=== PATIENT | female | born 1940 | race Caucasian/White ===

== ENCOUNTER 2017-02-27 05:05 | Emergency (ER) | payer OTHER, BC ==
[2017-02-27 05:52] LABS: BASOPHIL % 0.4 % (0-2); PLATELET COUNT 368 x10^3mcL (130-400)
[2017-02-27 05:57] LABS: RED CELL DISTRIBUTION WIDTH 18.4 % (11.5-14.5)
[2017-02-27 06:08] LABS: ALBUMIN 3.7 g/dL (3.4-5.0); ALKALINE PHOSPHATASE 42 U/L (46-116); ALT/SGPT 37 U/L (14-59); AST/SGOT 40 U/L (15-37); BILIRUBIN TOTAL 0.9 mg/dL (0.20-1.00); CALCIUM 10.5 mg/dL (8.5-10.1); CARBON DIOXIDE 22.8 mmol/L (21-32); CHLORIDE SERUM 102 mmol/L (98-107); CREATININE SERUM 0.9 mg/dL (0.6-1.0); GLUCOSE SERUM 200 mg/dL (74-106); LIPASE 291 IU/L (73-393); POTASSIUM SERUM 4.3 mmol/L (3.5-5.1); SODIUM SERUM 135 mmol/L (136-145); TOTAL PROTEIN, SERUM 7.8 g/dL (6.4-8.2)
[2017-02-27 06:34] VITALS: BP 147/108
== END 2017-02-27 06:32 | disposition short-term general hospital (02) ==
LOC: ED 05:05
PROVIDERS: Emergency Medicine
DX: I21.29 ST elevation (STEMI) myocardial infarction involving other sites (principal); I95.9 Hypotension, unspecified; I10 Essential (primary) hypertension; E11.9 Type 2 diabetes mellitus without complications; Z79.84 Long term (current) use of oral hypoglycemic drugs; Z88.5 Allergy status to narcotic agent; Z88.6 Allergy status to analgesic agent
CPT/HCPCS: 82962; J1644; J3010; J7030; Q0092

== ENCOUNTER 2017-03-20 10:41 | Inpatient (IN) | payer OTHER, BC ==
[~2017-03-20] VITALS: Ht 152.4 cm; Wt 80.8 kg
--- NOTE | 2017-03-20 12:03 | NUR ---
PT AMBULATORY TO BED 7 FROM ED LOBBY WITH STEADY GAIT C/O SOB X1 MONTH, WORSE SINCE LAST NIGHT. PER PT SHE WAS DISCHARGED FROM THE HOSPITAL APPROX 3 WEEKS AGO AND HAD BEEN USING HER NEBULIZER AT HOME 2X A DAY WITH MINIMAL RELIEF. PT ALSO REPORTS AWAITING SLEEP STUDY. PT AA/O X4, RESPS EVEN AND UNLABORED, LUNG SOUNDS CLEAR, SKIN INTACT, WARM/DRY TO TOUCH, ABDOMEN SOFT/ROUND, NON TENDER, NO S/S OF DISTRESS NOTED. PT GOWNED, PLACED ON [employer]PLEN[employer]MENT [employer]. AWAITING MSE.
[2017-03-20 12:55] LABS: BASOPHIL % 0.7 % (0-2); PLATELET COUNT 251 x10^3mcL (130-400)
[2017-03-20 12:56] LABS: RED CELL DISTRIBUTION WIDTH 18.7 % (11.5-14.5)
--- NOTE | 2017-03-20 13:03 | NUR ---
PT SITTING UP IN ED [place] AA/O X4, TALKING WITH VISITORS AT BEDSIDE, REPORTS FEELING BETTER POST BREATHING TX, RESPS EVEN AND UNLABORED, SKIN WARM/DRY TO TOUCH, NO S/S OF DISTRESS NOTED. COMFORT MEASURES IN PLACE, CALL LIGHT WITHIN REACH.
[2017-03-20 13:08] LABS: CALCIUM 8.8 mg/dL (8.5-10.1); CARBON DIOXIDE 27.1 mmol/L (21-32); CHLORIDE SERUM 104 mmol/L (98-107); CREATININE SERUM 0.9 mg/dL (0.6-1.0); GLUCOSE SERUM 168 mg/dL (74-106); POTASSIUM SERUM 3.8 mmol/L (3.5-5.1); SODIUM SERUM 140 mmol/L (136-145)
[2017-03-20 13:12] LABS: ALKALINE PHOSPHATASE 86 U/L (46-116); ALT/SGPT 47 U/L (14-59); AST/SGOT 33 U/L (15-37); BILIRUBIN TOTAL 0.7 mg/dL (0.20-1.00)
[2017-03-20 13:13] LABS: ALBUMIN 3.2 g/dL (3.4-5.0); CHOLESTEROL 119 mg/dL (<200); HDL CHOLESTEROL 23 mg/dL (40-60)
--- NOTE | 2017-03-20 13:40 | NUR ---
DR. SESAY AT BEDSIDE DISCUSSING PLAN OF CARE WITH PT AND FAMILY.
--- NOTE | 2017-03-20 14:16 | NUR ---
REPORT CALLED TO AGATA CASE, PT TO BE ADMITTED TO [facility]. PT IN NO DISTRESS.
[2017-03-20] MEDS ORDERED: CARVEDILOL3.125 M1 PO (14:17)
[2017-03-20] MEDS ORDERED: FUROSEMIDE20 MG PO (14:17)
[2017-03-20] MEDS ORDERED: ASPIR 8181 MG PO (14:17)
[2017-03-20] MEDS ORDERED: METFORMIN HCL850 MG PO (14:18)
[2017-03-20] MEDS ORDERED: GLIPIZIDE ER10 M1 PO (14:18)
[2017-03-20] MEDS ORDERED: LISINOPRIL2.5 MG PO (14:18)
[2017-03-20] MEDS ORDERED: PRAVACHOL20 MG PO (14:18)
[2017-03-20] MEDS ORDERED: PROTONIX20 MG PO (14:18)
[2017-03-20] MEDS ORDERED: IBUPROFEN400 MG PO (14:19)
--- NOTE | 2017-03-20 14:32 | NUR ---
PT PROVIDED WITH LUNCH TRAY, SITTING UP IN BED, AA/O X4, EATING WITH FAMILY BESIDE, RESPS EVEN AND UNLABORED, NO S/S OF DISTRESS NOTED.
[2017-03-20 14:47] VITALS: BP 106/68
--- NOTE | 2017-03-20 14:47 | NUR ---
REC'D PT FROM ER VIA [facility]. PT IS AAOX4. TELE #44 ST UZ=[id number]. C/O 5/10 HEADACHE. RESP EVEN AND UNLABORED. WHEEZING HEARD BILATERALLY. PT C/O MILD SOB O2 SAT = 95% ON RA. APPLIED 2L O2 VIA NC FOR COMFORT. IV NOTED TO RAC. INTACT AND PATENT. ORIENTED PT TO CALL LIGHT. BED IN LOWEST POSITION. WILL ENDORSE TO PRIMARY RN.
[2017-03-20 15:04] VITALS: BP 123/72
--- NOTE | 2017-03-20 15:30 | NUR ---
RECEIVED PT FR.ALBERT CASE.AAO X4.DENIES ANY PAIN/DISCOMFORT.IVF NS GOING AT 20 ML/HR INFUSING WELL.CALL LIGTH WITHIN REACH.INSTRUCTED TO CALL FOR ANY PAIN/DISCOMFORT.WILL CONTINUE TO MONITOR PT.
--- NOTE | 2017-03-20 16:10 | NUR ---
ECHO PENDING PT. HAD ECHO DONE AT [facility] LAST MONTH.
[2017-03-20 17:54] LABS: TOTAL IRON BINDING CAPACITY 417 ug/dL (250-450)
[2017-03-20 18:00] LABS: IRON 29 ug/dL (50-170)
[2017-03-20 18:10] LABS: MAGNESIUM 1.4 mg/dL (1.8-2.4); PHOSPHOROUS 3.9 mg/dL (2.5-4.9)
[2017-03-20 18:14] LABS: CHOLESTEROL/HDL RATIO 5.3
[2017-03-20 18:23] LABS: RED BLOOD CELLS 4.04 M/mm3 (4.10-5.10)
--- NOTE | 2017-03-20 18:30 | NUR ---
NO SIGNIFICANT CHANGE NOTED.WILL ENDORSE TO NEXT SHIFT.
--- NOTE | 2017-03-20 19:30 | NUR ---
PT IS RESTING WELL. CEE CHICAS DOING HER ASSESSMENTS. PLEASANT AND COOPERAITVE. LUNGS DIMINISHED ON AUSCULTATIONS BILATERALLY. WITH 02 AT 2 LITERS NASAL CANNULA. PT WILL HAVE BI-PAP AFTER PO MEDIATIONS. BOWEL SOUNDS ACTIVE AND PRESENT. WITH START ZOSYN IV. MADE COMFORTABLE IN BED. CALL LIGHT WITHIN EASY REACH.
--- NOTE | 2017-03-20 20:49 | NUR ---
OBTAINED LACTATE ACID 4.3. PAGED DR. MAGANA. PT IS ALSO ASKING FOR SLEEPING PILL.
[2017-03-20 21:31] VITALS: BP 112/48
--- NOTE | 2017-03-20 22:42 | NUR ---
DR. MAGANA ORDERED BOLUS NS FOR 2200 ML TOTAL FOR LACTATE 4.3. AFTER BEING STARTED FOR 30 MINUTES SHE C/O SOB. PLACED THE 02 AND LOWERED THE IV RATE TO 120 ML. NOW PT WAS TOLERATING IT, WAS INCREASED TO 220 ML PER HOUR. NOW SHE IS ON BI-PAP MACHINE. DR. MAGANA MADE AWARE.
[2017-03-21] VITALS (8 sets, daily range): BP systolic 97–131; BP diastolic 41–84
--- NOTE | 2017-03-21 00:16 | NUR ---
PT C/O BACK PAIN 09/15. MEDICATED WITH MOTRIN 600 MG PO AND CONCEPCIÓN CRACKERS. PT REFUSED BIPAP FOR NOW. JUST OBTAINED LACTIC ACID RESULT AND WAS 4.8.
--- NOTE | 2017-03-21 02:20 | NUR ---
PT IV IN THE RIGHT AC WAS INFILTRATED BUT WAS LEAKING. RESTARTED IV ANGIOCATH GAUGE 24. PT WANTED TO REFUSED INSERTION FOR ANOTHER IV LINE BUT WAS EXPLAINED THE IMPORTANCE OF IV. DR. MAGANA WAS NOTIFIED THAT PT WAS MILDLY SHORTNESS IF BREATH AND MILD WHEEZING NOTED ANGELINA BASES. HEAD OF BED ELEVATED. WILL MONITOR. MAG RIDER IV IS RESUMED. WILL MONITOR.
--- NOTE | 2017-03-21 03:19 | NUR ---
PT WAS GIVEN A DOSE OF AMBIEN 5 MG PO FOR SLEEP AND LASIX 40 MG IVPUSH BECAUSE OF WHEEZING. HEAD OF BED ELEVATED. WILL MONITOR.
--- NOTE | 2017-03-21 03:42 | NUR ---
PT IS UNABLE TO TOLERATE BIPAP SHE ASKED TO PUT ON 02. SHE IS 02 AT 2 LITERS NASAL CANNULA.
--- NOTE | 2017-03-21 05:18 | NUR ---
PT IS RESTING WELL AFTER DEMANDING THAT SHE HAS TO TAKE HER SLEEPING PILL AND LITTLE BIT LATE ABOUT 3 AM. IV NS AT 20 ML PER HOUR INFUSING WELL IN THE RIGHT WRIST. PATENT AND INTACT. VOIDED TWICE URINE AFTER 40 MG OF IV LASIX. WILL CONTINUE TO MONITOR.
[2017-03-21 06:12] LABS: BASOPHIL % 0.4 % (0-2); PLATELET COUNT 258 x10^3mcL (130-400)
[2017-03-21 06:21] LABS: CALCIUM 9.3 mg/dL (8.5-10.1); CARBON DIOXIDE 25.8 mmol/L (21-32); CHLORIDE SERUM 104 mmol/L (98-107); CREATININE SERUM 1.1 mg/dL (0.6-1.0); GLUCOSE SERUM 293 mg/dL (74-106); PHOSPHOROUS 3.3 mg/dL (2.5-4.9); POTASSIUM SERUM 4.2 mmol/L (3.5-5.1); SODIUM SERUM 142 mmol/L (136-145)
[2017-03-21 06:29] LABS: RED CELL DISTRIBUTION WIDTH 18.9 % (11.5-14.5)
--- NOTE | 2017-03-21 06:34 | NUR ---
PT NOTED SOB AND ESPECIALLY WHEN SHE GOES TO THE BATHROOM. WAS PRESENT AND NOTIFIED NIM OF THE PRESENT CONDITION AND THE SOB. PT HAS 02 AT 2 LITERS NASAL CANNULA. RT IS PRESENT AND GIVEN THE BREATHING TREATMENT. DR. BOONE WAS ALSO NOTIFIED THAT ABG NOT DONE ON DEBRA PT. ALSO NOTIFIED HIM THAT PT HAS BEEN REFUSING BIPAP. SHE ONLY WEAR LIKE TOTAL OF 1 HOUR THE WHOLE NIGHT. WILL MONITOR
[2017-03-21 06:55] LABS: microscopic required? NO
--- NOTE | 2017-03-21 07:04 | NUR ---
URINE SPECIMEN SENT TO LAB FOR URINALYSIS AND URC. PT ON BI-PAP AT THIS TIME. WITH SAME SETTING.
[2017-03-21 07:11] LABS: UA SPECIFIC GRAVITY 1.015 (1.005-1.035); urine erythrocyte NEGATIVE (NEGATIVE)
--- NOTE | 2017-03-21 07:20 | NUR ---
AAO X4.DENIES ANY PAIN AT THE MOMENT.RT AT BEDSIDE PUTTING THE PATIENT ON BIPAP.LUNG SOUND DIMINISHED ON THE BASES.ON ST ON THE MONITOR.IV SALINE LOCKED.CALL LIGTH WITHIN REACH.INSTRUCTED TO CALL FOR ANY PAIN/DISCOMFORT.WILL CONTINUE TO MONITOR PT.
--- NOTE | 2017-03-21 13:31 | NUR ---
ULTRASOUND GUIDED THORACENTESIS STARTING RIGHT NOW.
--- NOTE | 2017-03-21 13:57 | NUR ---
cancellation requested for echocardiogram
--- NOTE | 2017-03-21 14:04 | NUR ---
US GUIDED THORACENTESIS DONE WITH 1100 ML OUT.PT TOLERATED WELL.BAND AID ON R UPPER BACK CDI.PT TOLERATED WELL.
[2017-03-21 16:41] LABS: APPEARANCE FLUID HAZY; COLOR FLUID YELLOW; LYMPHOCYTE FLUID 70 %; RBC FLUID 1752 /cumm; SOURCE FLUID PLEURAL; WBC FLUID 242 /cumm
[2017-03-21 17:18] LABS: TOTAL PROTEIN, SERUM 7.3 g/dL (6.4-8.2)
--- NOTE | 2017-03-21 18:08 | NUR ---
NO SIGNIFICANT CHANGE NOTED.WILL ENDORSE TO NEXT SHIFT.
--- NOTE | 2017-03-21 20:00 | NUR ---
PT A/A/O X4, FAMILY AT BEDSIDE. PT DENIES DIZZINESS AND HEADACHE. WHEEZES NOTED ANGELINA LUNGS. BREATHING EVEN AND LABORED ON ROOM AIR, SPO2 97%. DENIES CHEST PAIN AND PRESSURE, HR 107. BOWEL SOUNDS ACTIVE. NO C/O N/V AND ABD PAIN. C/O PAIN ON THE PUNCTURE SITE ON THE RIGHT SIDE OF THE BACK. PT WAS GIVEN MOTRIN PO AT 1938. ENCOURAGED THE PT TO WAIT FOR THE EFFECT OF THE MEDICATION FOR THE PAIN. PT VERBALIZED UNDERSTADING. IV HEPLOCK INTACT ON THE RIGHT WRIST. MADE PT COMFORTABLE. PLACED CALL LIGHT WITH IN REACH. WILL CONTINUE TO MONITOR.
--- NOTE | 2017-03-21 23:53 | NUR ---
PT REMOVED BI PAP. PT STATED "I WANT IT OFF NOW.". CHELSEA RT AWARE. PT WITH NO RESPIRATORY DISTRESS NOTED. WILL CONTINUE TO MONITOR.
[2017-03-22 05:14] VITALS: BP 105/58
[2017-03-22 06:22] LABS: CARBON DIOXIDE 27.7 mmol/L (21-32); CHLORIDE SERUM 102 mmol/L (98-107); GLUCOSE SERUM 187 mg/dL (74-106); POTASSIUM SERUM 3.9 mmol/L (3.5-5.1); SODIUM SERUM 140 mmol/L (136-145)
--- NOTE | 2017-03-22 06:28 | NUR ---
PT QUIET AND RESTING. NO C/O SOB AND RESPIRATORY DISTRESS THUS FAR. IV HEPLOCK INTACT. MADE PT COMFORTABLE. WILL ENDORSE TO THE AM NURSE ACCORDINGLY.
--- NOTE | 2017-03-22 08:00 | NUR ---
AWAKE,ALERT AND ORIENTED. DENIES ANY PAIN AT THIS TIME.NO ACUTE RESP. DISTRESS NOTED. ON ROOM AIR,CONT. R.T PROTOCOL. REQUIRES MOD. ASSIST. W/ ADL NEEDS ,ABLE TO AMBULATE IN THE BATHROOM AND VOIDING WELL.W/ ASSIST.CONT. IV ANTIBIOTIC ORDERED.WILL CONT. PLAN OF CARE.
[2017-03-22 08:03] LABS: PLATELET COUNT 303 x10^3mcL (130-400)
[2017-03-22 08:11] LABS: BASOPHIL % 0 % (0-2); RED CELL DISTRIBUTION WIDTH 18.9 % (11.5-14.5)
--- NOTE | 2017-03-22 09:20 | NUR ---
DR. MONTELONGO HERE W/ OTHER MEDICAL STAFF MADE ROUNDS AND UPDATED PT. PLAN OF CARE.
[2017-03-22 09:45] VITALS: BP 102/57
[2017-03-22 13:58] VITALS: BP 97/47
--- NOTE | 2017-03-22 15:03 | NUR ---
ORDERED HOME O2 EVAL. SPO2 ON ROOM AIR AT REST IS 97% HR 115. SPO2 ON AMBULATION ON RA WAS 97%. PT DENIED SOB DURING AMBULATION ON RA. WILL CONT TO MONITOR
[2017-03-22 17:25] VITALS: BP 113/64
--- NOTE | 2017-03-22 18:59 | NUR ---
DENIES PAIN THE WHOLE DAY,COOPERATIVE AND QUITE,CALL LIGHT W/ IN REACH.NO ACUTE DISTRESS NOTED.
--- NOTE | 2017-03-22 19:33 | NUR ---
REC'D REPORT FROM DAY NURSE RN JADEN. PT IS AAOX4. ABLE TO MAKE NEEDS KNOWN. NO RESP DISTRESS NOTED. DENIES PAIN. TELE#44. LUNG SOUNDS ARE CTA. ON RA, NO SOB. BREATHING EVEN AND UNLABORED. ABD ROUND AND ACTIVE. NO EDEMA NOTED. IV ACCESS TO L WRIST HEPLOCK. BED IN LOWEST POSITION. CALL LIGHT WITHIN REACH. WILL PROCEED TO THE PLAN OF CARE.
[2017-03-22 20:38] VITALS: BP 113/55
[2017-03-22 20:57] VITALS: BP 99/62
--- NOTE | 2017-03-22 23:35 | NUR ---
ROUNDS MADE, PT IS SLEEPING WITH EYES CLOSED. NO DISTRESS NOTED. WILL CONT TO MONITOR.
--- NOTE | 2017-03-23 01:26 | NUR ---
ROUNDS MADE, PT IS SLEEPING AND RESTING WELL. NO DISTRESS NOTED. WILL CONT TO MONITOR.
[2017-03-23 05:02] VITALS: BP 107/58
[2017-03-23 06:16] LABS: CALCIUM 9.1 mg/dL (8.5-10.1); CARBON DIOXIDE 27.4 mmol/L (21-32); CHLORIDE SERUM 103 mmol/L (98-107); GLUCOSE SERUM 83 mg/dL (74-106); POTASSIUM SERUM 3.7 mmol/L (3.5-5.1); SODIUM SERUM 140 mmol/L (136-145)
--- NOTE | 2017-03-23 06:57 | NUR ---
PT SLEPT THROUGHOUT THE SHIFT. NO RESP DISTRESS NOTED. DENIES PAIN. ALL NEEDS MET AND ATTENDED TO. NO SIGNIFICANT CHANGES NOTED. IV ACCESS PATENT AND INTACT. WILL ENDORSE ALL CARE TO ONCOMING NURSE.
[2017-03-23 07:16] LABS: BASOPHIL % 0.1 % (0-2); PLATELET COUNT 324 x10^3mcL (130-400)
[2017-03-23 07:23] LABS: RED CELL DISTRIBUTION WIDTH 18.6 % (11.5-14.5)
--- NOTE | 2017-03-23 08:00 | NUR ---
AWAKE,ALERT AND ORIENTED DENIES ANY PAIN AT THIS TIME. SITTING UP IN CHAIR AT BEDSIDE EATING BREAKFAST. CALL LIGHT W/ IN REACH.CONT. IV ANTIBIOTIC ORDERED.ON RA NO ACUTE RESP. DISTRESS NOTED.WILL CONT. PLAN OF CARE.
[2017-03-23 08:52] VITALS: BP 105/58
--- NOTE | 2017-03-23 09:00 | NUR ---
DR. BEAULIEU HERE W/ OTHER MEDICAL STAFF MADE ROUNDS AND UPDATED PT. PLAN OF CARE.
[2017-03-23 13:19] VITALS: BP 110/57
--- NOTE | 2017-03-23 13:24 | NUR ---
PT NOTES CHART REVIEWED AND CLEARED FOR PT BY RN. PATIENT SITTING UP IN BEDSIDE CHAIR RESTING WITH VISITOR AT BEDSIDE. PATIENT ASKS IF POSSIBLE TO RETURN AFTER LUNCH, NO OTHER NEEDS AT THIS TIME. CALL LIGHT IN REACH. RETURNED POST LUNCH TO ATTEMPT THERAPY, BUT NOT IS IS SIDELINE SLEEPING AND EASILY AROUSED. PATIENT DENIES PAIN OR SOB AT THIS TIME, BUT EXPRESSING FATIGUE; "BEEN UP TO RESTROOM AND I DIDN'T SLEEP WELL LAST NIGHT" PER PATIENT. PATIENT DECLINED PARTICIPATION DESPITE PROVIDING ENCOURAGEMENT AND EDUCATION ON FURTHER BENEFITS OF THERAPY. PATIENT ENCOURAGED CONTINUED HEP PARTICIPATION AND TO USE CALL LIGHT WHEN NEEDING ASSISTANCE. TRAY AND CALL LIGHT IN REACH. RN MADE AWARE. WILL FOLLOW PATIENT NEXT SESSION IF POSSIBLE. RN MADE AWARE. PVEx2
--- NOTE | 2017-03-23 16:00 | NUR ---
[employer] WAS HERE AND CONNECTED PT. HOLTER MONITOR AND THEY. TEACH PT. AND INSTRUCTED WHAT THE PURPOSE AND HOW TO TAKE CARE OF THE HOLTER MONITOR . AND PT. VERBALIZED UNDERSTANDING OF INSTRUCTIONS GIVEN.PT. DENIES ANY PAIN AT THIS TIME. AMBULATED IN THE BATHROOM AND VOIDING WELL W/ 1 BM .
[2017-03-23 17:01] VITALS: BP 103/63
--- NOTE | 2017-03-23 17:22 | NUR ---
PT REFUSED HHN TX AT 1646. NO RESP DISTRESS OR SOB SEEN OR NOTED. SPO2 96 ON ROOM AIR. B/S: CLEAR
[2017-03-23 17:52] VITALS: BP 103/63
--- NOTE | 2017-03-23 18:00 | NUR ---
PT. EATING DINNER NO ACUTE DISTRESS NOTED. DENIES ANY PAIN THE WHOLE DAY.
--- NOTE | 2017-03-23 19:52 | NUR ---
REC'D PT FROM DAY NURSE. AAOX4. SITTING UP IN BED. ABLE TO MAKE NEEDS KNOWN. DENIES SOB. NO DISTRESS NOTED AT THIS TIME. TELE #44. LUNG SOUNDS CTA. ON RA, BREATHING EVEN AND UNLABORED. ABD IS ROUND AND ACTIVE. NO EDEMA NOTED. IV ACCESS TO THE LFA PATENT AND INTACT. BED IN LOWEST POSITION. CALL LIGHT WITHIN REACH. WILL PROCEED TO THE PLAN OF CARE.
[2017-03-23 21:01] VITALS: BP 119/98
--- NOTE | 2017-03-23 22:58 | NUR ---
ROUNDS MADE, PT IS ASLEEP AND RESTING IN BED. NO RESP DISTRESS NOTED. WILL CONT TO MONITOR.
[2017-03-24 05:18] VITALS: BP 107/54
--- NOTE | 2017-03-24 05:46 | NUR ---
ROUNDS MADE, PT IS SLEEPING BUT EASILY AROUSABLE. NO RESP DISTRESS NOTED. WILL CONT TO MONITOR.
[2017-03-24 06:22] LABS: CALCIUM 8.8 mg/dL (8.5-10.1); CARBON DIOXIDE 27.2 mmol/L (21-32); CHLORIDE SERUM 104 mmol/L (98-107); CREATININE SERUM 0.8 mg/dL (0.6-1.0); GLUCOSE SERUM 103 mg/dL (74-106); MAGNESIUM 1.7 mg/dL (1.8-2.4); PHOSPHOROUS 3.1 mg/dL (2.5-4.9); POTASSIUM SERUM 3.9 mmol/L (3.5-5.1); SODIUM SERUM 140 mmol/L (136-145)
--- NOTE | 2017-03-24 06:26 | NUR ---
PT SLEPT THROUGHOUT THE SHIFT. NO RESP DISTRESS NOTED. DENIES PAIN. NO SIGNIFICANT CHANGES. ALL NEEDS MET AND ATTENDED TO. IV ACCESS PATENT. WILL ENDORSE ALL CONTINUITY CARE TO ONCOMING NURSE.
[2017-03-24 06:31] LABS: BASOPHIL % 0.1 % (0-2); PLATELET COUNT 293 x10^3mcL (130-400)
[2017-03-24 06:58] LABS: RED CELL DISTRIBUTION WIDTH 17.8 % (11.5-14.5)
--- NOTE | 2017-03-24 07:55 | NUR ---
AWAKE,ALERT AND ORIENTED DENIES ANY PAIN AT THIS TIME.CALL LIGHT W/ IN REACH ABLE TO AMBULATE IN THE BATHROOM AND VOIDING WELL.NO ACUTE RESP. DISTRESS NOTED.CONT. IV ANTIBIOTIC ORDERED.PT. ON LIFE VEST HOLTER MONITOR FUNCTIONING WELL.WILL CONT. PLAN OF CARE.
--- NOTE | 2017-03-24 09:00 | NUR ---
DR. FRAGOSO HERE W/ OTHER MEDICAL STAFF MADE ROUNDS AND UPDATED PT. PLAN OF CARE.
[2017-03-24 09:28] VITALS: BP 106/71
[2017-03-24] MEDS ORDERED: LEVAQUIN500 M1 PO (12:16)
[2017-03-24] MEDS ORDERED: LAC PO (12:17)
[2017-03-24] MEDS ORDERED: AMB5 PO (12:48)
[2017-03-24] MEDS ORDERED: LASIX40 MG PO (12:49)
[2017-03-24] MEDS ORDERED: POTASSIUM CHLO10 ME5 PO (12:51)
--- NOTE | 2017-03-24 14:17 | NUR ---
PT. WENT HOME W/ STABLE CONDITION PER W/C ACC. W/ HER . DISCHARGED INSTRUCTIONS GIVEN AND DISCUSSED TO PT. AND VERBALIZED UNDERSTANDING OF INSTRUCTION GIVEN NO ACUTE DISTRESS NOTED.ESCORTED BY FRANCA IN THE LOBBY.
== END 2017-03-24 14:15 | disposition home health service (06) | DRG 871 ==
LOC: ED 10:41 → DU 13:50
PROVIDERS: Emergency Medicine; Family Medicine; ADMIT Family Medicine
PROC: 0W993ZZ Drainage of Right Pleural Cavity, Percutaneous Approach (ICD-10-PCS; principal; 2017-03-21)
DX: A41.9 Sepsis, unspecified organism (principal); J69.0 Pneumonitis due to inhalation of food and vomit; I50.43 Acute on chronic combined systolic (congestive) and diastolic (congestive) heart failure; N17.0 Acute kidney failure with tubular necrosis; J45.901 Unspecified asthma with (acute) exacerbation; E44.0 Moderate protein-calorie malnutrition; J90 Pleural effusion, not elsewhere classified; R65.20 Severe sepsis without septic shock; I11.0 Hypertensive heart disease with heart failure; E11.65 Type 2 diabetes mellitus with hyperglycemia; E11.51 Type 2 diabetes mellitus with diabetic peripheral angiopathy without gangrene; K76.1 Chronic passive congestion of liver; G47.33 Obstructive sleep apnea (adult) (pediatric); F43.21 Adjustment disorder with depressed mood; D63.8 Anemia in other chronic diseases classified elsewhere; E78.5 Hyperlipidemia, unspecified; Z68.32 Body mass index [BMI] 32.0-32.9, adult; Z79.82 Long term (current) use of aspirin; Z79.84 Long term (current) use of oral hypoglycemic drugs
CPT/HCPCS: 32555; 36600; 82947; 83880; 88344; 94150; 97110-GP; C1729; J1940; J1956; J2920; J2930; J3475; J3490; J7030; J7613; J7620; J7626; J7644; Q0092